=== PATIENT | female | born 1965 | race Caucasian/White ===

== ENCOUNTER 2016-05-06 00:49 | Emergency (ER) | payer MEDICAID ==
[~2016-05-06] VITALS: Ht 162.6 cm; Wt 80.7 kg
[2016-05-06 01:15] VITALS: BP 155/104
[2016-05-06] MEDS ORDERED: NACL 0.9% 1,000 ML IV ONE (01:24)
[2016-05-06] MEDS ORDERED: HYDROcodone/APAP 5/325 MG 1 TAB TAB PO ONE (01:25)
[2016-05-06] MEDS ORDERED: diphenhydrAMINE 50 MG/ML VIAL IVP ONE (01:25)
[2016-05-06] MEDS ORDERED: METOCLOPRAMIDE 10 MG/2 ML INJ VIAL IVP ONE (01:25)
--- NOTE | 2016-05-06 01:26 | NUR ---
50Y F BIB SELF C/O MIGRAINE X 3 DAYS DESPITE TAKING FIORCET AND TOPAMAX THAT HAS BEEN PRESCRIBED TO HER. PT DENIES ANY DIARRHEA ; SKIN IS PINK/WARM/DRY; AAOX4 WITH EVEN AND STEADY GAIT; LUNGS CLEAR BL; HR EVEN AND REGULAR; PT DENIES ANY FEVER, CP, SOB, OR COUGH AT THIS TIME; PATIENT STATES PAIN OF 9/10 AT THIS TIME; VSS; PATIENT POSITIONED FOR COMFORT; HOB ELEVATED; BEDRAILS UP X2; BED DOWN. ER MD MADE AWARE OF PT STATUS.
--- NOTE | 2016-05-06 01:26 | NUR ---
PATIENT AMBULATED TO ER BED 05
--- NOTE | 2016-05-06 01:40 | NUR ---
Patient being evaluated by physician DR PHOENIX at bedside.
[2016-05-06] MEDS ORDERED: MORPHINE SULFATE 4 MG/ML SYR IVP ONE (02:25)
[2016-05-06] MEDS ORDERED: ONDANSETRON 4 MG/2 ML VIAL IVP ONE (02:25)
--- NOTE | 2016-05-06 03:19 | NUR ---
IV removed, catheter intact and site benign. Applied folded 4x4 gauze and tape to stop bleeding.
[2016-05-06 03:20] VITALS: BP 122/78
--- NOTE | 2016-05-06 03:20 | NUR ---
Patient discharged with v/s stable. Written and verbal after care instructions given and explained. Patient alert, oriented and verbalized understanding of instructions. Ambulatory with steady gait. All questions addressed prior to discharge. ID band removed. Patient advised to follow up with PMD. Rx of ULTRAM 50MG given. Patient educated on indication of medication including possible reaction and side effects. Opportunity to ask questions provided and answered.
== END 2016-05-06 03:18 | disposition home or self-care (01) ==
LOC: MED 00:49
DX: G43.909 Migraine, unspecified, not intractable, without status migrainosus (principal); Z90.49 Acquired absence of other specified parts of digestive tract; Z88.1 Allergy status to other antibiotic agents; Z88.8 Allergy status to other drugs, medicaments and biological substances
CPT/HCPCS: 81002; 96361; 96374; 96375; 99284; J1200; J2270; J2405; J2765; J7030

== ENCOUNTER 2016-07-11 20:27 | Emergency (ER) | payer MEDICAID ==
[~2016-07-11] VITALS: Ht 162.6 cm; Wt 79.4 kg
[2016-07-11 21:15] VITALS: BP 142/86
--- NOTE | 2016-07-11 22:24 | NUR ---
Patient to OF.
--- NOTE | 2016-07-11 22:24 | NUR ---
PATIENT PRESENTS TO ED WITH AKHTAR X 2 DAYS . PT DENIES N/V/D; SKIN IS PINK/WARM/DRY; AAOX4 WITH EVEN AND STEADY GAIT; LUNGS CLEAR BL; HR EVEN AND REGULAR; PT DENIES ANY FEVER, CP, SOB, OR COUGH AT THIS TIME; PATIENT STATES PAIN OF 9/10 AT THIS TIME; VSS; PATIENT POSITIONED FOR COMFORT; HOB ELEVATED; BEDRAILS UP X2; BED DOWN. ER MD MADE AWARE OF PT STATUS.
--- NOTE | 2016-07-11 22:25 | NUR ---
Dr. Estevez evaluating patient.
[2016-07-11] MEDS ORDERED: MORPHINE SULFATE 10 MG/ML SYR IM ONE (22:30)
[2016-07-11 23:04] VITALS: BP 136/79
--- NOTE | 2016-07-11 23:04 | NUR ---
DISCHARGE NOTE ONLY: Patient discharged with v/s stable BY ER MD DR KELLY. Written and verbal after care instructions given and explained BY ER MD DR KELLY.. Patient alert, oriented and verbalized understanding of instructions. Ambulatory with steady gait. All questions addressed prior to discharge BY ER MD DR KELLY.. ID band removed. Patient advised to follow up with PMD. Rx of FIORCET 50MG/325MG/40MG given. Patient educated on indication of medication including possible reaction and side effects. Opportunity to ask questions provided and answered BY ER MD DR KELLY..
== END 2016-07-11 23:04 | disposition home or self-care (01) ==
LOC: MED 20:30
DX: G43.909 Migraine, unspecified, not intractable, without status migrainosus (principal); Z90.89 Acquired absence of other organs; Z88.6 Allergy status to analgesic agent; Z88.8 Allergy status to other drugs, medicaments and biological substances
CPT/HCPCS: 96372; 99283; J2270